=== PATIENT | male | born 1980 | race Caucasian/White ===

== ENCOUNTER 2016-09-02 20:40 | Emergency (ER) | payer OTHER ==
[~2016-09-02] VITALS: Ht 175.3 cm; Wt 143.1 kg
[~2016-09-02 20:40] MED LIST: ATARAX,VISTARIL50 MG PO; FLUOXETINE HCL10 MG PO; LAMICTAL25 MG PO; PEN-VEE K,VEET500 MG PO; PERCOCET 5/31 TABLET PO; PREDNISONE20 MG PO
[2016-09-02 23:55] LABS: INFLUENZA A VIRAL ANTIGEN NEGATIVE; INFLUENZA B VIRAL ANTIGEN NEGATIVE
[2016-09-02] MEDS ORDERED: ADVIL,NUPRIN,M200 MG PO (23:55)
[2016-09-02] MEDS ORDERED: PROZAC10 MG PO (23:55)
[2016-09-02] MEDS ORDERED: EXTRA STRENGTH500 M1 PO (23:56)
[2016-09-03] MEDS ORDERED: TRAMADOL HCL50 MG PO (00:01)
[2016-09-03] MEDS ORDERED: PEN-VEE K,VEET500 MG PO (00:01)
[2016-09-03 00:20] VITALS: BP 162/96
== END 2016-09-03 00:20 | disposition home or self-care (01) ==
LOC: RME 20:40 → EME 20:40 → RME 09-03 00:20
PROVIDERS: Nurse Practitioner Family
DX: K08.89 Other specified disorders of teeth and supporting structures (principal); R50.9 Fever, unspecified; M79.1 Myalgia; K02.9 Dental caries, unspecified; R00.0 Tachycardia, unspecified
CPT/HCPCS: 87502; 99281; 99284

== ENCOUNTER 2016-12-14 16:29 | Emergency (ER) | payer OTHER ==
[~2016-12-14] VITALS: Ht 182.9 cm; Wt 144.0 kg
[~2016-12-14 16:29] MED LIST changes: +ADVIL,NUPRIN,M200 MG PO; +EXTRA STRENGTH500 M1 PO; +PROZAC10 MG PO; +TRAMADOL HCL50 MG PO
[2016-12-14] MEDS ORDERED: NAPROXEN500 MG PO (19:41)
[2016-12-14 20:06] VITALS: BP 157/106
== END 2016-12-14 20:07 | disposition home or self-care (01) ==
LOC: EME 16:29
DX: M79.672 Pain in left foot (principal)
CPT/HCPCS: 73630; 99281; 99284